=== PATIENT | male | born 1960 | race Hispanic/Latino ===

== ENCOUNTER → 2023-06-06 | Outpatient (CLI) | payer OTHER, MEDICARE ==
[2023-06-06 14:04] LABS: CREATININE 1.2 mg/dL (0.5-1.3); POTASSIUM 4.6 mmol/L (3.5-5.1)
== END | disposition home or self-care (01) ==
LOC: LAB 13:13
PROVIDERS: ATTEND Student in an Organized Health Care Education/Training Program
DX: I10 Essential (primary) hypertension (principal)
CPT/HCPCS: 36415; 80048

== ENCOUNTER → 2023-06-07 | Outpatient (CLI) | payer OTHER, MEDICARE ==
[~2023-06-07] MED LIST: IOHEXOL 350 MG/ML 100ML INFUS..BTL IV ONE; METOPROLOL TARTRATE 1 MG/ML 5ML VIAL IV ONE
== END | disposition home or self-care (01) ==
LOC: EDUNIT# 08:30 → RAH 08:59
PROVIDERS: ATTEND Student in an Organized Health Care Education/Training Program
DX: I25.42 Coronary artery dissection (principal)
CPT/HCPCS: 75574; J3490; Q9967

== ENCOUNTER → 2023-08-29 | Outpatient (CLI) | payer MEDICARE | END | disposition home or self-care (01) | LOC: RAH 13:59 | PROVIDERS: ATTEND Student in an Organized Health Care Education/Training Program | DX: I25.119 Atherosclerotic heart disease of native coronary artery with unspecified angina pectoris (principal); R93.1 Abnormal findings on diagnostic imaging of heart and coronary circulation | CPT/HCPCS: 93306 ==